=== PATIENT | female | born 1955 | race American Indian/Alaskan Native ===

== ENCOUNTER 2016-11-26 13:49 | Outpatient (CLI) | payer OTHER ==
--- NOTE | 2016-11-26 14:54 | XRay Report ---
Left elbow 3 views: History: Left elbow pain. Findings: No bony or articular abnormality. No fracture or dislocation no soft tissue calcification. Impression: Essentially negative left elbow.
== END 2016-11-26 13:50 | disposition home or self-care (01) ==
LOC: XRAY 13:49
PROVIDERS: ATTEND Internal Medicine
DX: M25.522 Pain in left elbow (principal); W19.XXXD Unspecified fall, subsequent encounter